=== PATIENT | female | born 1960 | race Caucasian/White ===

== ENCOUNTER → 2020-11-11 | Outpatient (CLI) | payer MEDICAID ==
--- NOTE | 2020-11-11 14:35 | Diagnostic Imaging Report ---
EXAMINATION: Pelvis and left hip at 2:07 p.m. INDICATION: Fell, hip pain. Single AP view of the pelvis and AP and lateral views of the left hip were obtained. There are no prior studies available for comparison. There is minimal irregularity of the iliopectineal line on the left. The possibility that there is a nondisplaced fracture in this area should be considered. If further imaging is desired, then CT would be recommended. There is no fracture, dislocation or acute bony abnormality noted otherwise. There is mild degenerative disease of the hip and sacroiliac joints. There has also been a prior fusion of L4 and L5. The soft tissues are unremarkable. IMPRESSION: 1. The slight irregularity of the iliopectineal line on the left does raise a question of a nondisplaced fracture in this area. Recommendations as above. 2. There is no acute bony abnormality noted otherwise. Dictated by: Dictated on workstation # [id number]
== END ==
LOC: RAD FS 14:03
PROVIDERS: ATTEND Family Medicine
DX: M25.552 Pain in left hip (principal); W19.XXXA Unspecified fall, initial encounter
CPT/HCPCS: 73502

== ENCOUNTER → 2021-06-16 | Outpatient (CLI) | payer MEDICAID ==
--- NOTE | 2021-06-16 11:36 | Diagnostic Imaging Report ---
PROCEDURE: CT lumbar spine without contrast. TECHNIQUE: Multiple contiguous axial images were obtained through the lumbar spine without the use of intravenous contrast. Sagittal and coronal reformations were then performed. Auto Exposure Controls were utilized during the CT exam to meet ALARA standards for radiation dose reduction. INDICATION: Chronic low back pain. History of previous laminectomy and fusion. COMPARISON: No previous for comparison. FINDINGS: There are bilateral pedicle screws from L4 through S1. There is a right pedicular screw at L3. There is intervertebral spacer at L3-L4 and L5-S1 in good position. There is anterior plate with bone screws at L3-L4. There is grade 1 anterolisthesis of L3 on L4. Decompressive laminectomy noted. This extends from L3 through L5. There is no evidence of recurrent stenosis. No evidence of compression fracture. No findings to indicate hardware loosening. No evidence of pedicle screw fractures. There is noted advanced degenerative disc disease at T12-L1. There is loss of disc space height with desiccation and sclerotic endplate changes. There is moderate encroachment upon the neural foramen on the left at this level due to loss of disc space height and broad-based disc protrusion. There is a loculated fluid collection noted posteriorly to the fused posterior elements in the soft tissues measuring 6 cm superior to inferior extending from L4 to S1. This measures 3.3 x 1.3 cm in transverse and AP dimension. IMPRESSION: 1. Postoperative changes from fusion and laminectomy from L3 through S1. No evidence of hardware complications or restenosis. 2. Fluid collection in the subcutaneous soft tissues in the lower lumbosacral spine as described likely representing chronic seroma. Dictated by: Dictated on workstation # [id number]
== END ==
LOC: RAD FS 08:21
PROVIDERS: ATTEND Physician Assistant
DX: M51.35 Other intervertebral disc degeneration, thoracolumbar region (principal); M43.16 Spondylolisthesis, lumbar region; Z98.1 Arthrodesis status
CPT/HCPCS: 72131

== ENCOUNTER → 2021-12-09 | Outpatient (CLI) | payer MEDICAID ==
--- NOTE | 2021-12-09 12:34 | Diagnostic Imaging Report ---
INDICATION: Right shoulder pain. Fall. COMPARISON: None. FINDINGS: Multiple radiographic views of the right shoulder were obtained. There is no fracture, dislocation, or other acute bony abnormality identified. The soft tissues appear unremarkable. No radiopaque foreign bodies identified. The visualized portions of the right lung are clear. IMPRESSION: No acute fractures or dislocations of the right shoulder. Dictated by: Dictated on workstation # [id number]
== END ==
LOC: RAD FS 10:47
PROVIDERS: ATTEND Nurse Practitioner
DX: M25.511 Pain in right shoulder (principal); W19.XXXA Unspecified fall, initial encounter
CPT/HCPCS: 73030

== ENCOUNTER → 2022-12-09 | Outpatient (CLI) | payer MEDICAID ==
[2022-12-09 13:24] VITALS: BP 109/60
--- NOTE | 2022-12-14 10:26 | Cardiology Stress Test Report ---
Stress Test Report Date of Procedure/Referring: Date of Procedure: Dec 09, 2022 PCP Mark Caldwell MD Admitting Physician Admitting Physician: Attending Physician: Barrett Daley MD Indications: CP Baseline Heart Rate: 51 Baseline Blood Pressure: Blood Pressure Systolic: 109 Blood Pressure Diastolic: 60 Baseline EKG: Baseline EKG: NSR Summary/Conclusion: Summary: In summary, the patient started exercising with a baseline heart rate, blood pressure and EKG mentioned above Patient was able to exercise for a total of 7 minutes on Art protocol, METs 8.5 Maximum heart rate 147 Maximum blood pressure 195/79 Stress EKG, Minimal nondiagnostic changes Recovery EKG , Return to baseline Conclusion: 1. Good exercise tolerance for a total of 7 minutes on Art protocol, 8.5 METs, achieving 93 percent of maximum expected heart rate 2. Minimal nondiagnostic EKG changes with exercise returned to baseline during recovery 3. No arrhythmia was noted Copy Copies To 1: MARK CALDWELL MD, BASHAR J MD Dec 14, 2022 10:26
== END ==
LOC: CARD 11:55
PROVIDERS: ATTEND Internal Medicine Cardiovascular Disease
DX: I08.1 Rheumatic disorders of both mitral and tricuspid valves (principal); I10 Essential (primary) hypertension; I25.10 Atherosclerotic heart disease of native coronary artery without angina pectoris
CPT/HCPCS: 93017; C8929; 93306

== ENCOUNTER 2022-12-30 06:09 | Outpatient (CLI) | payer MEDICAID ==
[~2022-12-30] VITALS: Ht 157.5 cm; Wt 56.4 kg
[2022-12-31] MEDS ORDERED: MTP25TSR PO (16:52)
[2022-12-31] MEDS ORDERED: RT-ALBUINH INH (16:52)
[2022-12-31] MEDS ORDERED: LEVO112T68 PO (16:52)
[2022-12-31] MEDS ORDERED: FLUT100B3 IH (16:52)
[2022-12-31] MEDS ORDERED: AMLO-250 PO (16:52)
== END 2022-12-31 17:20 | disposition home or self-care (01) ==
LOC: PREOP 06:09
PROVIDERS: ATTEND Orthopaedic Surgery
DX: Z01.818 Encounter for other preprocedural examination (principal)

== ENCOUNTER 2023-01-06 08:01 | Day surgery (SDC) | payer MEDICAID ==
--- NOTE | 2022-12-29 18:28 | HISTORY AND PHYSICAL ---
This will be for outpatient surgery on 01/06/2023 for right rotator cuff repair. HISTORY: The patient is a 62-year-old right-hand dominant female with known right rotator cuff tear. She also was found to have tenosynovitis noted along her biceps. She reports progressive worsening function in her shoulder. She reports pain and weakness. She reports it is worse with overhead activities. She reports pain on the lateral aspect of the shoulder. She denies radicular symptoms. She reports it is worse at night and has difficulty with sleep because of it. Due to functional impairment and failure to improve with conservative measures, the patient elected to proceed with surgical intervention. REVIEW OF SYSTEMS: No chest pain, no shortness of breath. No dysuria. PAST MEDICAL HISTORY: Hypertension, kidney disease, asthma, COPD, seizures, coronary artery disease, hypothyroidism, anxiety, chronic renal insufficiency, reflux, hypokalemia, basal cell cancer of the skin. PAST SURGICAL HISTORY: Knee arthroscopy, ankle wrist, tubal ligation, appendectomy, cholecystectomy, trigger finger release, colonoscopy, EGD, herniorrhaphy. FAMILY HISTORY: Noncontributory. PRIMARY CARE PROVIDER. Dr. Caldwell. MEDICATIONS: Amlodipine, Euthyrox, albuterol, Flovent, metoprolol. ALLERGIES: 1. AFLURIA. 2. TRAMADOL. 3. SULFA. 4. BEE STINGS. 5. SHELLFISH. 6. BACLOFEN. 7. GABAPENTIN. 8. CODEINE. 9. IODINE. 10. LEVAQUIN. 11. LYRICA. 12. PENICILLIN. 13. SEPTRA. 14. LIPITOR. 15. KEPPRA. SOCIAL HISTORY: The patient is a former smoker. Denies alcohol use. PHYSICAL EXAMINATION: GENERAL: The patient is well-developed, well-nourished, in no acute distress. HEENT: Normocephalic, atraumatic. Pupils are equal, round and reactive to light. Oropharynx is clear. NECK: Supple. No lymphadenopathy. LUNGS: Clear to auscultation bilaterally. HEART: Regular rate and rhythm. ABDOMEN: Soft, nontender, nondistended. EXTREMITIES: Right shoulder demonstrates positive Neer's, positive Walker sign. She has weakness with abduction and external rotation with a negative Spurling's maneuver. She has forward elevation to 107 degrees, external rotation 60 degrees, internal rotation to her lower lumbar spine. IMPRESSION: Right shoulder rotator cuff tear. PLAN: Right shoulder arthroscopy with biceps tenotomy, acromioplasty and open rotator cuff repair. The risks, benefits, options, ramifications and recovery were discussed in length with the patient. She understands and wishes to proceed. Job ID: [id number] DocumentID: [id number] Dictated Date: 12/24/2022 09:42:14 Soybean Grower Date: 12/24/2022 11:53:00 Dictated By: JW STOKES MD
[~2023-01-06] VITALS: Ht 157.5 cm; Wt 56.4 kg
[2023-01-06] VITALS (10 sets, daily range): BP systolic 124–149; BP diastolic 69–92
[~2023-01-06 08:01] MED LIST: AMLO-250 PO; FLUT100B3 IH; LEVO112T68 PO; MTP25TSR PO; RT-ALBUINH INH; oxyCODONE/APAP 5/325MG (PERCOCET 5) TABLET PO PRN
[2023-01-06] MEDS ORDERED: ceFAZolin INJECTION 2,000 MG in NS (IVPB) 50 ML IV ONE (08:15)
[2023-01-06] MEDS ORDERED: LACTATED RINGERS 1,000 ML IV PRN (08:15)
[2023-01-06] MEDS ORDERED: NS (IVPB) 50 ML ONE (08:38)
[2023-01-06] MEDS ORDERED: ceFAZolin INJECTION 2,000 MG ONE (08:38)
--- NOTE | 2023-01-06 08:44 | Progress Note-Pre Operative ---
Pre-Operative Progress Note Date of Available H&P: Dec 29, 2022 Date H&P Reviewed: Jan 06, 2023 Time H&P Reviewed: 08:43 Changes from last HP none Pre-Operative Diagnosis: right long head of biceps tear and rotator cuff tear JW STOKES MD Jan 06, 2023 08:44
--- NOTE | 2023-01-06 08:45 | Progress Note-Post Operative ---
Post-Operative Progess Note Surgeon (s)/Legal Arbitrator (s) Surgeon JW STOKES MD Legal Arbitrator: Pete Waters Pre-Operative Diagnosis right long head of biceps tear and rotator cuff tear Post-Operative Diagnosis right long head of biceps tear and rotator cuff tear, and chondromalacia of the humeral head Procedure & Operative Findings Date of Procedure 01/06/23 Procedure Performed/Findings right shoulder arthroscopic biceps tenotomy, chondroplasty of the humeral head, acromioplasty and open rotator cuff repair Anesthesia Type GETA Estimated Blood Loss Estimated blood loss (mL): minimal Specimens/Packing Specimens Removed none Packing: none JW STOKES MD Jan 06, 2023 08:45
[2023-01-06] MEDS ORDERED: MIDAZOLAM 2 MG/2 ML (VERSED) VIAL ONE ×2 (09:01→09:07)
[2023-01-06] MEDS ORDERED: morphine PF (DURAMORPH) 10 MG/10 ML AMP ONE (09:02)
[2023-01-06] MEDS ORDERED: BUPIVACAINE 0.25% 30 ML (SENSORCAINE) VIAL ONE (09:02)
[2023-01-06] MEDS ORDERED: proPOfol 200 MG/20 ML (DIPRIVAN) VIAL IV ONE (09:06)
[2023-01-06] MEDS ORDERED: fentaNYL INJ 100 MCG/2 ML AMP ONE (09:07)
[2023-01-06] MEDS ORDERED: ROCURONIUM 50 MG/5 ML (ZEMURON) VIAL IV ONE (09:11)
[2023-01-06] MEDS ORDERED: ONDANSETRON 4 MG/2 ML (SDV) Z0FRAN ONE (09:12)
[2023-01-06] MEDS ORDERED: LIDOCAINE PF 2% 5 ML (XYLOCAINE) VIAL ONE (09:12)
[2023-01-06] MEDS ORDERED: SEVOFLURANE (ULTANE) 15 ML INHAL SOLN ONE (09:12)
[2023-01-06] MEDS ORDERED: MEPERIDINE (DEMEROL) INJ 50 MG/ML IVP ONE (10:45)
[2023-01-06] MEDS ORDERED: ONDANSETRON 4 MG/2 ML (SDV) Z0FRAN IVP PRN (10:45)
[2023-01-06] MEDS ORDERED: morphine INJ 10 MG/ML 1ML (SYR OR VIAL) IVP ONE (10:45)
--- NOTE | 2023-01-06 10:45 | Anesthesia-General Post-Op ---
General Patient Condition Mental Status/LOC: Same as Preop Cardiovascular: Satisfactory Nausea/Vomiting: Absent Respiratory: Satisfactory Pain: Controlled Complications: Absent Post Op Complications Complications None Follow Up Care/Instructions Patient Instructions None needed. Anesthesia/Patient Condition Patient Condition Patient is doing well, no complaints, stable vital signs, no apparent adverse anesthesia problems. No complications reported per nursing. WANDY BARRIOS CRNA Jan 06, 2023 10:45
[2023-01-06] MEDS ORDERED: NS IV 500 ML 500 ML IV PRN (11:15)
--- NOTE | 2023-01-06 19:30 | OPERATIVE REPORT ---
DATE OF SERVICE: 01/06/2023 PREOPERATIVE DIAGNOSES: 1. Chronic right rotator cuff tear. 2. Right shoulder SLAP tear. POSTOPERATIVE DIAGNOSES: 1. Chronic right rotator cuff tear. 2. Right shoulder SLAP tear. 3. 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 PROCEDURES: 1. Right shoulder open rotator cuff repair. 2. Right arthroscopic biceps tenotomy. 3. Right shoulder arthroscopic chondroplasty of the humeral head. 4. Right shoulder arthroscopic acromioplasty. SURGEON: Tyrone Stokes MD SUPERVISOR SAMPLE: Pete Waters, who assisted throughout the procedure and closed the incisions. ANESTHESIA: General endotracheal plus interscalene nerve block by Cornel Johnson CRNA. ESTIMATED BLOOD LOSS: Minimal. DRAINS: None. COMPLICATIONS: None. POSTOPERATIVE PLAN: Passive range of motion with sling wear for 4 weeks. The patient was transferred to the recovery room awake and in stable condition. STATEMENT OF MEDICAL NECESSITY: The patient is a 62-year-old right-hand dominant female with complaints of right shoulder pain and weakness. She underwent an MRI, which revealed a full-thickness supraspinatus tear as well as a tear of the long head of the biceps, which involved a longitudinal split to the biceps anchor. She tried rest, activity modifications and anti-inflammatories without relief. Due to functional impairment and failure to improve with conservative measures, the patient elected to proceed with surgical intervention. Examination under anesthesia revealed forward elevation 170 degrees, external rotation of 90 degrees, internal rotation of 80 degrees. Orthoscopic findings demonstrated grade 2 chondral softening in the central portion of the glenoid with no unstable chondral flaps. The humeral head demonstrated grade 2 chondral flap centrally in a 10 x 10 area. There was a longitudinal split in the long head of the biceps, which disrupted the biceps anchor. The remainder of the labrum was intact. There was a full-thickness supraspinatus tear approximately 1 x 1 cm in size and the remainder of the rotator cuff was intact. Subacromial space demonstrated moderate bursitis with sloping of the anterolateral acromion. PROCEDURE IN DETAIL: After risks and benefits of the procedure were discussed and questions were answered and informed consent was signed and placed on the chart, the operative site was confirmed in the preoperative holding area, initialed by surgeon. The patient was then transferred to the operating room and after adequate levels of general endotracheal anesthetic were obtained, a timeout was called, confirming the operative site. Examination under anesthesia was performed with the above findings noted. The right shoulder and upper extremity were prepped and draped in the usual sterile fashion. The shoulder joint was injected with 20 mL of fluid as was the subacromial space. A standard posterior portal was placed. A diagnostic arthroscopy was carried out with the above findings noted. An anterior portal was created in the interval between the biceps, subscapularis and glenoid. The biceps anchor was released. The stump was debrided with a shaver. The humeral head chondromalacia was debrided with a shaver back to a stable edge. The scope was redirected into the subacromial space. Lateral portal was created. Bursectomy was performed and acromion was planed to a flat Type 1 acromion. The lateral portal was then extended. The deltoid was split in line with its fibers leaving attached to the acromion. The rotator cuff tear was mobilized and repaired using a single corkscrew anchor in a modified Adams-Jw repair with excellent repair obtained. No undue tension was noted with the arm at the side. The wound was copiously irrigated. The deltoid was repaired in a [id number] fashion using #2 FiberWire in [id number] interrupted fashion. The wound was further irrigated and 3-0 Vicryl was used to reapproximate subcutaneous tissue and skin was closed with 4-0 nylon running alternating horizontal mattress fashion. The port sites were closed with 4-0 nylon in simple interrupted fashion. Shoulder was injected with Duramorph. The port sites were infiltrated with plain Marcaine. A soft dressing was applied and the patient was transported to the recovery room awake and stable condition. Job ID: [id number] DocumentID: [id number] Dictated Date: 01/06/2023 10:46:13 Investigation Lieutenant Date: 01/06/2023 19:28:00 Dictated By: TYRONE STOKES MD
== END 2023-01-06 13:15 | disposition home or self-care (01) ==
LOC: SDC 08:01
PROVIDERS: ATTEND Orthopaedic Surgery
DX: M75.101 Unspecified rotator cuff tear or rupture of right shoulder, not specified as traumatic (principal); S43.431A Superior glenoid labrum lesion of right shoulder, initial encounter; M94.211 Chondromalacia, right shoulder; M65.811 Other synovitis and tenosynovitis, right shoulder; Z87.891 Personal history of nicotine dependence
CPT/HCPCS: 23412; 29822; 29826; 87081; C1713

== ENCOUNTER 2023-07-22 09:24 | Emergency (ER) | payer MEDICAID ==
[~2023-07-22] VITALS: Ht 157 cm; Wt 50.0 kg
[~2023-07-22 09:24] MED LIST changes: -oxyCODONE/APAP 5/325MG (PERCOCET 5) TABLET PO PRN
[2023-07-22] MEDS ORDERED: KETOROLAC INJ 15 MG/ML VIAL IVP STA (09:43)
[2023-07-22] MEDS ORDERED: NS IV 1000 ML 1,000 ML IV STA ×2 (09:43→10:59)
[2023-07-22] MEDS ORDERED: ONDANSETRON INJECTION 4 MG/2 ML (SDV) IVP STA (09:43)
[2023-07-22] MEDS ORDERED: ASPIRIN 81 MG CHEWABLE TABLET PO ONE (09:45)
--- NOTE | 2023-07-22 09:45 | ED General ---
General Chief Complaint: COVID19 Suspect/Confirmed Stated Complaint: SOB/CHILLS Source of Information: Patient, EMS History of Present Illness Date Seen by Provider: Jul 22, 2023 Time Seen by Provider: 09:24 Initial Comments 62-year-old female presenting with complaints of being sick with a cough and cold symptoms 7 to 10 days ago. In the last 4 to 5 days she has had right-sided chest pressure. She states that when she gets up and moves around the chest pressure gets worse and she also gets dizzy, lightheaded, short of breath, nauseated, feels like she might pass out. When she sits down it does settle ba ck down. She denies having fever, chills, abdominal pain, vomiting, diarrhea, pain with urination. She had presented to the walk-in clinic for urgent care visit today and they had referred her to the emergency department. Timing/Duration: 4-5 Days Severity: Moderate Modifying Factors: worse with Movement Associated Systoms: Chest Pain (Right-sided chest pressure), Cough (7 to 10 days ago); No Diaphoresis, No Fever/Chills, No Headaches; Malaise, Nausea/Vomiting (Nausea with movement but not vomiting); No Rash, No Seizure; Shortness of Air (Short of breath with movement); No Syncope; Weakness Allergies and Home Medications Allergies Coded Allergies: Influenza Virus Vaccines (Verified Allergy, Unknown, 12/31/22) Penicillins (Verified Allergy, Unknown, HIVES/RASH/ITCHING, 12/31/22) atorvastatin (Verified Allergy, Unknown, MUSCLE PAIN, 12/31/22) baclofen (Verified Allergy, Unknown, SWELLING, 12/31/22) bee venom protein (honey bee) (Verified Allergy, Unknown, Anaphylaxis, 12/31/22) codeine (Verified Allergy, Unknown, HIVES; PT TOLERATED MORPHINE, 01/06/23) gabapentin (Verified Allergy, Unknown, SWELLING, 12/31/22) iodine (Verified Allergy, Unknown, SWELLING, 12/31/22) levetiracetam (Verified Allergy, Unknown, ABD PAIN, 12/31/22) levofloxacin (Verified Allergy, Unknown, HIVES/RASH/SWELLING, 12/31/22) pregabalin (Verified Allergy, Unknown, SWELLING, 12/31/22) shellfish derived (Verified Allergy, Unknown, 12/31/22) sulfamethoxazole (Verified Allergy, Unknown, 12/31/22) tramadol (Verified Allergy, Unknown, Anaphylaxis; PT TOLERATED MORPHINE, 01/06/23) trimethoprim (Verified Allergy, Unknown, 12/31/22) Patient Home Medication List Home Medication List Reviewed: Yes Albuterol Sulfate (Ventolin Hfa) 1 Puff Puff, 2 PUFF INH Q4H, (Reported) Entered as Reported by: SANDRA TRACY on 12/31/22 165 Amlodipine Besylate (Amlodipine Besylate) 5 Mg Tablet, 5 MG PO DAILY, (Reported) Entered as Reported by: SANDRA TRACY on 12/31/22 165 Cephalexin (Cephalexin) 500 Mg Capsule, 500 MG PO BID Prescribed by: TRUE VILLAFUERTE on 07/22/23 113 Fluticasone Propionate (Flovent Diskus 100 mcg) Unknown Strength Blst.w.dev, Unknown Dose IH BID, (Reported) Entered as Reported by: SANDRA TRACY on 12/31/221651 Levothyroxine Sodium (Euthyrox) 112 Mcg Tablet, 112 MCG PO DAILY, (Reported) Entered as Reported by: SANDRA TRACY on 12/31/22 165 Metoprolol Succinate (Metoprolol Succinate) 25 Mg Tab.er.24h, 25 MG PO DAILY, (Reported) Entered as Reported by: SANDRA TRACY on 12/31/22 165 Ondansetron (Ondansetron Odt) 4 Mg Tab.rapdis, 4 MG PO Q6H PRN for NAUSEA/VOMITING Prescribed by: TRUE VILLAFUERTE on 07/22/23 1136 Review of Systems Review of Systems Constitutional: No chills; dizziness (with standing and movement); No fever; malaise EENTM: No epistaxis, No nose congestion Respiratory: see HPI Cardiovascular: see HPI Gastrointestinal: see HPI Genitourinary: no symptoms reported Musculoskeletal: no symptoms reported Skin: No rash Psychiatric/Neurological: Denies Headache Past Ghugssz-Unpzfx-Siroca Hx Patient Social History Tobacco Use?: No Use of E-Cig and/or Vaping dev: No Substance use?: No Alcohol Use?: No Pt feels they are or have been: No Immunizations Up To Date First/Initial COVID19 Vaccinat: NO Second COVID19 Vaccination Clifford: NO Third COVID19 Vaccination Date: NO Seasonal Allergies Seasonal Allergies: No Past Medical History Surgery/Hospitalization HX: Hypertension, Hypothyroid, COPD, CAD, Anxiety, GERD, Appendectomy, Cholecsytectomy Appendectomy, Gallbladder, Hysterectomy, Orthopedic Asthma, Chronic Bronchitis, COPD Currently Using CPAP: No Currently Using BIPAP: No Cardiac: No Coronary Artery Disease, Hypertension Neurological: Yes (EVERY 3 MONTHS LAST SEIZURE OCT 2022) Seizure Disorder [employer]IST History: Hysterectomy Genitourinary: Yes (1 FUNCTIONING KIDNEY LEFT, CKD) UTI-Chronic Gastrointestinal: Yes Gastroesophageal Reflux, Hiatal Hernia, Gall Bladder Disease Degenerate Disk Disease, Arthritis, Fibromyalgia, Chronic Back Pain Endocrine: Yes (HYPOKALEMIA) Hypothyroidsim HEENT: No Cancer: Yes Skin What Type of Treatment Did You: Surgical Intervention Psychosocial: Yes Anxiety Integumentary: Yes (BASAL SKIN CA) Physical Exam Vital Signs Vital Signs - First Documented 07/22/23 09:30 Temp 36.5 Pulse 81 Resp 18 B/P (MAP) 147/99 (115) Pulse Ox 96 O2 Delivery Room Air Capillary Refill : Height, Weight, BMI Height: '" Weight: lbs. oz. 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 Norm as Tested Skin: Normal Color, Warm/Dry Progress/Results/Core Measures Suspected Sepsis SIRS Temperature: Pulse: Respiratory Rate: Laboratory Tests 07/22/23 09:32: White Blood Count 10.2 Blood Pressure / Mean: Laboratory Tests 07/22/23 09:32: Creatinine 1.37H, INR Comment 0.9, Platelet Count 269, Total Bilirubin 0.5 Results/Orders Lab Results Laboratory Tests Test 07/22/23 09:32 07/22/23 11:00 Range/Units White Blood Count 10.2 4.3-11.0 10^3/uL Red Blood Count 5.05 3.80-5.11 10^6/uL Hemoglobin 15.6 11.5-16.0 g/dL Hematocrit 46 35-52 % Mean Corpuscular Volume 91 80-99 fL Mean Corpuscular Hemoglobin 31 25-34 pg Mean Corpuscular Hemoglobin Concent 34 32-36 g/dL Red Cell Distribution Width 13.4 10.0-14.5 % Platelet Count 269 130-400 10^3/uL Mean Platelet Volume 9.7 9.0-12.2 fL Immature Granulocyte % (Auto) 0 % Neutrophils (%) (Auto) 86 H 42-75 % Lymphocytes (%) (Auto) 10 L 12-44 % Monocytes (%) (Auto) 3 0-12 % Eosinophils (%) (Auto) 0 0-10 % Basophils (%) (Auto) 1 0-10 % Neutrophils # (Auto) 8.7 H 1.8-7.8 10^3/uL Lymphocytes # (Auto) 1.0 1.0-4.0 10^3/uL Monocytes # (Auto) 0.3 0.0-1.0 10^3/uL Eosinophils # (Auto) 0.0 0.0-0.3 10^3/uL Basophils # (Auto) 0.1 0.0-0.1 10^3/uL Immature Granulocyte # (Auto) 0.0 0.0-0.1 10^3/uL Prothrombin Time 12.7 12.2-14.7 SEC INR Comment 0.9 0.8-1.4 Activated Partial Thromboplast Time 23 L 24-35 SEC D-Dimer < 0.27 0.00-0.49 UG/ML Sodium Level 132 L 135-145 MMOL/L Potassium Level 4.3 3.6-5.0 MMOL/L Chloride Level 97 L 98-107 MMOL/L Carbon Dioxide Level 23 21-32 MMOL/L Anion Gap 12 5-14 MMOL/L Blood Urea Nitrogen 20 H 7-18 MG/DL Creatinine 1.37 H 0.60-1.30 MG/DL Estimat Glomerular Filtration Rate 43 BUN/Creatinine Ratio 15 Glucose Level 105 70-105 MG/DL Calcium Level 9.4 8.5-10.1 MG/DL Corrected Calcium 9.4 8.5-10.1 MG/DL Magnesium Level 1.9 1.6-2.4 MG/DL Total Bilirubin 0.5 0.1-1.0 MG/DL Aspartate Amino Transf (AST/SGOT) 14 5-34 U/L Alanine Aminotransferase (ALT/SGPT) 11 0-55 U/L Alkaline Phosphatase 116 40-136 U/L Troponin I < 0.30 <0.30 NG/ML Pro-B-Type Natriuretic Peptide 305.6 H <125.0 PG/ML Total Protein 8.0 6.4-8.2 GM/DL Albumin 4.0 3.2-4.5 GM/DL Lipase 28 8-78 U/L Influenza Type A (RT-PCR) Not Detected Not Detecte Influenza Type B (RT-PCR) Not Detected Not Detecte SARS-CoV-2 RNA (RT-PCR) Not Detected Not Detecte Urine Color YELLOW Urine Clarity SLIGHTLY CLOUDY Urine pH 6.0 5-9 Urine Specific [place] 1.015 L 1.016-1.022 Urine Protein NEGATIVE NEGATIVE Urine Glucose (UA) NEGATIVE NEGATIVE Urine Ketones NEGATIVE NEGATIVE Urine Nitrite POSITIVE H NEGATIVE Urine Bilirubin NEGATIVE NEGATIVE Urine Urobilinogen 0.2 < = 1.0 MG/DL Urine Leukocyte Esterase 2+ H NEGATIVE Urine RBC (Auto) TRACE-I H NEGATIVE Urine RBC RARE /HPF Urine WBC 50-100 H /HPF Urine Squamous Epithelial Cells 0-2 /HPF Urine Crystals NONE /LPF Urine Bacteria LARGE H /HPF Urine Casts NONE /LPF Urine Mucus NEGATIVE /LPF Urine Culture Indicated YES My Orders Orders - TRUE VILLAFUERTE MD Cbc And Automated Diff (07/22/23 09:41) Magnesium (07/22/23 09:41) Chest 1 View Ap/Pa Only (07/22/23 09:41) Ekg Tracing (07/22/23 09:41) Comprehensive Metabolic Panel (07/22/23 09:41) Protime With Inr (07/22/23 09:41) Partial Thromboplastin Time (07/22/23 09:41) O2 (07/22/23 09:41) Monitor-Rhythm Ecg Trace Only (07/22/23 09:41) Ed Iv/Invasive Line Start (07/22/23 09:41) Lipase (07/22/23 09:41) Troponin I Fs (07/22/23 09:41) Probnp Fs (07/22/23 09:41) Covid 19 Inhouse Test (07/22/23 09:41) Ct Head Wo (07/22/23 09:41) Ua Culture If Indicated (07/22/23 09:41) Influenza A And B By Pcr (07/22/23 09:41) Ns Iv 1000 Ml (Ns Iv 1000 Ml) (07/22/23 09:43) Ondansetron Injection (Ondansetron Inj (07/22/23 09:43) Ketorolac Injection (Ketorolac Injection (07/22/23 09:43) Orthostatic Vital Signs (Adult (07/22/23 09:45) Fibrin Degradation Products (07/22/23 09:49) Ns Iv 1000 Ml (Ns Iv 1000 Ml) (07/22/23 10:59) Urine Culture (07/22/23 11:00) Ceftriaxone Iv/Im (Ceftriaxone Iv/Im) (07/22/23 11:28) Vital Signs/I&O 07/22/23 07/22/23 07/22/23 09:30 09:51 11:57 Temp 36.5 36.5 Pulse 81 74 93 77 93 Resp 18 18 B/P (MAP) 147/99 (115) 140/80 (100) 149/87 135/78 (97) 149/87 (107) Pulse Ox 96 96 O2 Delivery Room Air Room Air Capillary Refill : Progress Note #1: Progress Note Differential diagnosis includes COVID, influenza, electrolyte imbalance, pneumonia, acute coronary syndrome, pulmonary embolism, viral syndrome. EMS established peripheral IV access on the right arm. Send labs for complete blood count, comprehensive metabolic profile, coagulation test, lipase, magnesium, troponin, proBNP, urinalysis. Nasal swab for COVID and influenza. 1 view chest x-ray to look for pathology in the chest. CT scan of the head without IV contrast to look for pathology to be causing her to get dizzy and nauseated with movement and standing. Urinalysis to look for signs of UTI. This will also help look for her hydration status. Orthostatic vital signs to look if she tilts when she stands up. Placed on cardiac telemetry monitoring and my initial interpretation is her heart rate shows a sinus rhythm with heart rate in the 80s. Obtain electrocardiogram to further look for ischemia or arrhythmia. Administer NS 1 L IV fluid bolus for hydration. Zofran 4 mg IV for nausea, Toradol 15 mg IV for chest pressure. Initially her oxygen saturation is 96% on room air, Blood pressure 144/76. Breathing about 16 breaths/minute. Afebrile. When othostatic vitals were obtained she did not have a drop in her heart rate or blood pressure, instead they went up slightly with changing positions. 1001 On my personal review and interpretation her 1 view CXR had chronic appearing interstitial changes but no definite infiltrate. Progress Note #2: Time: 10:18 Progress Note Complete blood count did not show an elevated white blood cell count as it was 10.2. She was not anemic with a hemoglobin of 15.6. Her coagulation factors were not elevated for coagulopathy. The swab for COVID and flu was negative. Her CT scan of the head was read out by the radiologist as no acute process. Chest xray showed hyperexpanded lungs but no infiltrate. Progress Note #3: Time: 11:00 Progress Note Comprehensive metabolic profile showed her chronic renal insufficiency with Cr 1.37 and GFR 43. Otherwise she had no acute significant abnormality on her electrolytes, hepatic function or heart enzymes. Troponin was <0.3, BNP 305, Lipase 28. Order a 2nd Liter of NS for hydration as patient felt a little better after the IV fluid bolus. She did not feel like she had to urinate but was able to provide a small specimen for testing. 1127 UA shows UTI with Nitrites, Leukocyte esterase, bacteria and WBC. Discussed with patient and she believes that she can tolerate Keflex or Cephalexin so will give a dose of 1 gram Rocephin or Ceftriaxone here in the ED. Provided she is doing ok with this will prescribe Keflex 500 mg bid x 5 days and encourage fluids at home. Zofran ODT 4 mg q 6 hour prn n/v. Check with clinic if still not improving or having more concerns. 1156 patient tolerated Ceftriaxone without difficulty or reaction so will discharge to home as above and sent scripts for cephalexin and ondansetron. ECG Initial ECG Impression Date: Jul 22, 2023 Initial ECG Impression Time: 09:33 Initial ECG Rate: 71 Initial ECG Rhythm: Normal Sinus Initial ECG Comparisson: No Previous ECG Available Comment On my personal interpretation and review the electrocardiogram shows sinus rhythm with a heart rate of 71 bpm. MD interval [address] elevation. There is no prior tracing for comparison. QT interval 339 ms with a QTc interval 361 ms. Diagnostic Imaging Diagonstic Imaging: Xray Plain Films/CT/US/NM/MRI: chest Comments NAME: ROBERT NANCE [facility] REC#: [id number] PT STATUS: REG ER : 1960 PHYSICIAN: TRUE VILLAFUERTE MD ADMIT DATE: 07/22/23/ER FS Draft Date of Exam:07/22/23 CHEST 1 VIEW AP/PA ONLY INDICATION: Cough and dizziness. No priors. FINDINGS: The lungs are clear although mildly hyperexpanded. Air trapping versus aggressive inspiration. Cardiomediastinal and hilar contours were normal. No effusion or pneumothorax. Old right rib deformity posterolaterally at the 6th level noted. No free air beneath the diaphragms. IMPRESSION: Clear mildly hyperexpanded lungs. Chronic or healed right rib deformity. No acute appearing abnormality. Dictated on workstation # [id number] Dict: 07/22/23 1016 Trans: 07/22/23 1019 GINGER [id number] Interpreted by: AMANDA VICTORIA Electronically signed by: Reviewed: Reviewed by [place] Diagonstic Imaging: CT Plain Films/CT/US/NM/MRI: head Comments NAME: ROBERT NANCE [facility] REC#: [id number] PT STATUS: REG ER : 1960 PHYSICIAN: TRUE VILLAFUERTE MD ADMIT DATE: 07/22/23/ER FS Draft Date of Exam:07/22/23 CT HEAD WO PROCEDURE: CT head without contrast. TECHNIQUE: Multiple contiguous axial images were obtained through the brain without the use of intravenous contrast. Auto Exposure Controls were utilized during the CT exam to meet ALARA standards for radiation dose reduction. INDICATION: Cough and dizziness. No priors. FINDINGS: There is no hemorrhage, hydrocephalus, cerebral edema, mass, mass effect nor evidence for elevated intracerebral pressures. The orbits, sinuses, and calvarium unremarkable. No hemo-sinus. No pneumocephalus. No abnormal extra-axial collection. Ventricular system nondilated and nondisplaced. The basilar cisterns patent. No sulcal effacement. There is preservation of the normal cortical bartholomew-white matter differentiations. IMPRESSION: Normal CT head Dictated on workstation # [id number] Dict: 07/22/23 1010 Trans: 07/22/23 1016 GINGER [id number] Interpreted by: AMANDA VICTORIA Electronically signed by: Reviewed: Reviewed by Me Departure Impression Primary Impression: Acute cystitis without hematuria Additional Impressions: Pressure in right side of chest Dizziness Dehydration Disposition: 01 HOME, SELF-CARE Condition: Improved Departure-Patient Inst. Decision time for Depature: 11:56 Referrals: MARK XIAO MD (PCP/Family) Primary Care Physician Patient Instructions: Dizziness, Adult ED, Urinary Tract Infection, Adult ED, Dehydration, Adult ED Add. Discharge Instructions: Try to stay well hydrated and keep sipping on fluids to help flush out urine infection and rehydrate your body. Go slowly as you change positions to let your body adjust as you go from laying to sitting to standing. Check back with clinic if still not improving as you take the antibiotic or if having more concerns. All discharge instructions reviewed with patient and/or family. Voiced understanding. Scripts Ondansetron (Ondansetron Odt) 4 Mg Tab.rapdis 4 MG PO Q6H PRN for NAUSEA/VOMITING for 3 Days, #12 TAB 0 Refills Prov: TRUE VILLAFUERTE MD 07/22/23 Cephalexin (Cephalexin) 500 Mg Capsule 500 MG PO BID for UTI for 5 Days, #10 CAP 0 Refills Prov: TRUE VILLAFUERTE MD 07/22/23 TRUE VILLAFUERTE MD Jul 22, 2023 09:45
[2023-07-22 09:51] VITALS: BP_SYST 135; BP_SYST 140; BP_SYST 149; BP_DIAS 78; BP_DIAS 80; BP_DIAS 87
[2023-07-22 09:51] LABS: BASOPHILS # (AUTO) 0.1 10^3/uL (0.0-0.1); BASOPHILS % (AUTO) 1 % (0-10); EOSINOPHILS % (AUTO) 0 % (0-10); HEMATOCRIT 46 % (35-52); HEMOGLOBIN 15.6 g/dL (11.5-16.0); LYMPHOCYTES % (AUTO) 10 % (12-44); MEAN CORPUSCULAR HEMOGLOBIN 31 pg (25-34); MEAN CORPUSCULAR HGB CONC 34 g/dL (32-36); MEAN CORPUSCULAR VOLUME 91 fL (80-99); MEAN PLATELET VOLUME 9.7 fL (9.0-12.2); MONOCYTES # (AUTO) 0.3 10^3/uL (0.0-1.0); MONOCYTES % (AUTO) 3 % (0-12); NEUTROPHILS # (AUTO) 8.7 10^3/uL (1.8-7.8); NEUTROPHILS % (AUTO) 86 % (42-75); PLATELET COUNT 269 10^3/uL (130-400); WHITE BLOOD COUNT 10.2 10^3/uL (4.3-11.0)
[2023-07-22 10:06] LABS: INR 0.9 (0.8-1.4); PROTHROMBIN TIME PATIENT 12.7 SEC (12.2-14.7)
--- NOTE | 2023-07-22 10:16 | Diagnostic Imaging Report ---
PROCEDURE: CT head without contrast. TECHNIQUE: Multiple contiguous axial images were obtained through the brain without the use of intravenous contrast. Auto Exposure Controls were utilized during the CT exam to meet ALARA standards for radiation dose reduction. INDICATION: Cough and dizziness. No priors. FINDINGS: There is no hemorrhage, hydrocephalus, cerebral edema, mass, mass effect nor evidence for elevated intracerebral pressures. The orbits, sinuses, and calvarium unremarkable. No hemo-sinus. No pneumocephalus. No abnormal extra-axial collection. Ventricular system nondilated and nondisplaced. The basilar cisterns patent. No sulcal effacement. There is preservation of the normal cortical bartholomew-white matter differentiations. IMPRESSION: Normal CT head Dictated by: Dictated on workstation # [id number]
[2023-07-22 10:18] LABS: ALANINE AMINOTRANSFERASE 11 U/L (0-55); ALKALINE PHOSPHATASE 116 U/L (40-136); BILIRUBIN,TOTAL 0.5 MG/DL (0.1-1.0); BUN/CREATININE RATIO 15; CALCIUM 9.4 MG/DL (8.5-10.1); CARBON DIOXIDE 23 MMOL/L (21-32); CHLORIDE 97 MMOL/L (98-107); CREATININE SERUM 1.37 MG/DL (0.60-1.30); GFR ESTIMATED 43; GLUCOSE 105 MG/DL (70-105); MAGNESIUM 1.9 MG/DL (1.6-2.4); POTASSIUM 4.3 MMOL/L (3.6-5.0); SODIUM 132 MMOL/L (135-145)
[2023-07-22 10:19] LABS: LIPASE 28 U/L (8-78)
--- NOTE | 2023-07-22 10:19 | Diagnostic Imaging Report ---
INDICATION: Cough and dizziness. No priors. FINDINGS: The lungs are clear although mildly hyperexpanded. Air trapping versus aggressive inspiration. Cardiomediastinal and hilar contours were normal. No effusion or pneumothorax. Old right rib deformity posterolaterally at the 6th level noted. No free air beneath the diaphragms. IMPRESSION: Clear mildly hyperexpanded lungs. Chronic or healed right rib deformity. No acute appearing abnormality. Dictated by: Dictated on workstation # [id number]
[2023-07-22 11:05] LABS: BILIRUBIN,URINE NEGATIVE (NEGATIVE); COLOR,URINE YELLOW; GLUCOSE, URINE (UA) NEGATIVE (NEGATIVE); KETONES,URINE NEGATIVE (NEGATIVE); LEUKOCYTE ESTERASE ,URINE 2+ (NEGATIVE); NITRITE,URINE POSITIVE (NEGATIVE); PROTEIN,URINE NEGATIVE (NEGATIVE)
[2023-07-22 11:14] LABS: BACTERIA,URINE LARGE /HPF; CLARITY,URINE SLIGHTLY CLOUDY; RBC,URINE RARE /HPF; SQUAMOUS EPITHELIAL CELL,UR 0-2 /HPF; WBC,URINE 50-100 /HPF
[2023-07-22] MEDS ORDERED: cefTRIAXone IV/IM 1,000 MG in NS (IVPB) 50 ML 50 ML IV STA (11:28)
[2023-07-22] MEDS ORDERED: ONDA4TAB11 PO (11:36)
[2023-07-22] MEDS ORDERED: CEPH500C PO (11:36)
[2023-07-22 11:57] VITALS: BP 149/87
== END 2023-07-22 11:58 | disposition home or self-care (01) ==
LOC: EDUNIT# 09:24 → ER FS 09:26
DX: N30.00 Acute cystitis without hematuria (principal); E86.0 Dehydration; R07.89 Other chest pain; I12.9 Hypertensive chronic kidney disease with stage 1 through stage 4 chronic kidney disease, or unspecified chronic kidney disease; N18.9 Chronic kidney disease, unspecified; Z90.49 Acquired absence of other specified parts of digestive tract; Z88.0 Allergy status to penicillin; Z88.1 Allergy status to other antibiotic agents; Z88.2 Allergy status to sulfonamides; Z28.310 Unvaccinated for COVID-19; Z20.822 Contact with and (suspected) exposure to COVID-19
CPT/HCPCS: 36415; 70450; 71045; 80053; 81000; 83690; 83735; 83880; 84484; 85025; 85379; 85610; 85730; 87077; 87088; 87184; 87636; 93041